=== PATIENT | male | born 2000 | race Two or more races ===

== ENCOUNTER 2023-07-09 10:25 | Emergency (ER) | payer SELFPAY ==
[~2023-07-09] VITALS: Ht 190.5 cm; Wt 218.1 kg
[2023-07-09 11:24] VITALS: BP 134/73; PULSE 96; RESP 18; TEMP 99.5; O2SAT 96
[2023-07-09] MEDS ORDERED: DexAMETHasone SOD PHOS 10MG/1ML VIAL INJ IM ONE (11:30)
[2023-07-09] MEDS ORDERED: ACETAMINOPHEN 500 MG TAB PO ONE (11:30)
[2023-07-09 12:05] LABS: COVID19 ANTIGEN SOFIA FIA NEGATIVE (NEGATIVE)
[2023-07-09 12:15] LABS: Rapid Influenza A Positive (Negative); Rapid Influenza B Negative (Negative)
[2023-07-09] MEDS ORDERED: BENZ100C97 PO (12:39)
[2023-07-09] MEDS ORDERED: IBUP-1455 PO (12:39)
[2023-07-09] MEDS ORDERED: ACET500T58 PO (12:39)
[2023-07-09] MEDS ORDERED: LORA10CA PO (12:39)
[2023-07-09] MEDS ORDERED: TAMIFLU PO (12:39)
== END 2023-07-09 12:46 | disposition home or self-care (01) ==
LOC: ER 10:25
DX: J11.1 Influenza due to unidentified influenza virus with other respiratory manifestations (principal); Z20.822 Contact with and (suspected) exposure to COVID-19
CPT/HCPCS: 36415; 87426; 87804; 96372; 99283; J1100